=== PATIENT | male | born 1985 | race Two or more races ===

== ENCOUNTER 2024-03-01 02:38 | Emergency (ER) | payer BC, SELFPAY ==
[2024-03-01 02:43] VITALS: BP 118/84
--- NOTE | 2024-03-01 03:48 | ED.GENMED ---
History of Present Illness
<PINKY Reveles - Last Filed: 03/01/24 06:14>
General
Chief Complaint: Anal/Rectal Problem
Source: patient
Time Seen by Provider: 03/01/24 03:48
Nursing documentation reviewed up to this point in time: agreed with except (Pain has been present for 2 days, but acutely worsened over the last 24 hours.)
History of Present Illness
History of Present Illness:
A pleasant 38-year-old male with a past medical history of GERD, IBS, anxiety, presents to the emergency room for increasing anorectal pain x 2 days and possible 'thrombosed hemorrhoid '. Patient states that pain initially began 2 days ago but
confirms that pain has steadily increased throughout the day prompting him to come to the emergency department. Patient confirms he has had a posterior midline sentinal tag for the last 2 years that occasionally becomes swollen and inflamed. He
states that the most recent episode was 'a few months ago '. He has no associated constipation, diarrhea, abdominal pain, chest pain, shortness of breath, vomiting, Rectal bleeding.
Past History
<PINKY Reveles - Last Filed: 03/01/24 06:14>
Past History
ED Past Medical History: GERD, Psychiatric (takes Lexapro) and Other (IBS)
ED Past Surgical History: Cholecystectomy and Other (hernia)
Social History
Tobacco: Former smoker
Alcohol: Occasional
Personal:
Living: with roommate
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
Review of Systems
<PINKY Reveles - Last Filed: 03/01/24 06:14>
Review of Systems
All Other Systems: ROS reviewed and negative except as documented in HPI and ROS
Phy Exam
<PINKY Reveles - Last Filed: 03/01/24 06:14>
General Physical Exam
General Presentation: well appearing
General Skin: warm and dry
General Habitus: obese
General Mental: alert
General Hydration: appears well hydrated
Eye Exam
Eye Exam: PERRL
Cardiovascular Exam
Cardiovascular Exam: regular rate/rhythm, no edema, no gallop, no murmur and normal peripheral pulses
Pulmonary Exam
Pulmonary Exam: lungs clear, no respiratory distress, no rales, no crackles, no rhonchi, no wheezing and no cough
Gastrointestinal Exam
Gastrointestinal Exam: normal bowel sounds, non tender, soft and non distended
Rectal Exam: other (Large 3 cm posterior midline sentinel tag noted. Extremely tender to palpation. Small area of erythema noted on the right aspect of sentinel tag. No external source of bleeding identified.)
Neurological Exam
Neurological Exam: alert and oriented x3
Musculoskeletal Exam
Musculoskeletal Exam: full ROM
Psychiatric Exam
Psychiatric Exam: normal mood/affect
Course
<PINKY Reveles - Last Filed: 03/01/24 06:14>
Orders/Labs/Results
Orders:
Orders
03/01/24 05:05
Anusol Hc Suppository [Anusol Hc] 25 mg RECTAL NOW STA
Vital Signs
Initial and Last Documented VS:
Initial Vital Signs
Temp Pulse Resp BP Pulse Ox
98.0 F 61 16 118/84 98
03/01/24 02:43 03/01/24 02:43 03/01/24 02:43 03/01/24 02:43 03/01/24 02:43
Last Documented Vital Signs
Temp Pulse Resp BP Pulse Ox
98.0 F 61 16 118/84 98
03/01/24 02:43 03/01/24 02:43 03/01/24 02:43 03/01/24 02:43 03/01/24 02:43
<Jeffrey Velasquez DO - Last Filed: 03/01/24 04:45>
Orders/Labs/Results
Orders:
Orders
03/01/24 05:05
Anusol Hc Suppository [Anusol Hc] 25 mg RECTAL NOW STA
Vital Signs
Initial and Last Documented VS:
Initial Vital Signs
Temp Pulse Resp BP Pulse Ox
98.0 F 61 16 118/84 98
03/01/24 02:43 03/01/24 02:43 03/01/24 02:43 03/01/24 02:43 03/01/24 02:43
Last Documented Vital Signs
Temp Pulse Resp BP Pulse Ox
98.0 F 61 16 118/84 98
03/01/24 02:43 03/01/24 02:43 03/01/24 02:43 03/01/24 02:43 03/01/24 02:43
<PINKY Reveles - Last Filed: 03/01/24 06:14>
MDM/Problems Addressed
Differential Diagnosis Includes:
Thrombosed external hemorrhoid, rectal condyloma acuminata, internal hemorrhoid, Anal fissure.
<PINKY Reveles - Last Filed: 03/01/24 06:14>
*Critical Care Note
Total Time (30-74mins, 75-104mins- exclusive of procedures): Not Applicable
ED Attending Note
<PINKY Reveles - Last Filed: 03/01/24 06:14>
-
Portions of this chart may have been created with voice recognition software.� Occasional wrong word or��sound alike� substitutions may have occurred due to the inherent limitations of voice recognition software.
<Jeffrey Velasquez DO - Last Filed: 03/01/24 04:45>
ED Attending Note
Patient seen and examined by attending physician: Yes
I performed the substantive portion of visit, reviewed & personally made and approve the management plan that is documented in note by myself or BARRIE.: Yes
ED Attending Note:
Pleasant 38-year-old male presents with rectal pain. Patient states that the pain is been present for 2 days. He thought he had a thrombosed hemorrhoid. Patient came into the emergency department accustom pain has been worsening throughout the
day. Denies fever, chills, nausea or vomiting. Patient states that he has had a posterior midline sentinel tag that has been present for the last 2 years. It occasionally becomes inflamed with the last episode of inflammation began 2 months
prior. Patient denies chest pain or shortness of breath. Patient was seen in conjunction with the PA student. I have reviewed and agree with the history and treatment plan presented. On my independent physical exam, patient is awake, alert, and
oriented x3 minimal acute distress. No respiratory distress. Skin is warm and dry. Patient mentating appropriately. Focused physical exam rectal exam performed in the presence of nursing shows an inflamed sentinel tag. There is no obvious
evidence of a thrombosed hemorrhoid. Plan is to try Anusol suppository follow-up with colorectal surgery.
Discharge Plan
Departure
Patient Disposition: Home (Routine Discharge)
Date of Disposition: 03/01/24
Time of Disposition: 04:43
Patient with high blood pressure during this ER visit?: Yes
Condition: Good
Discharge Problem:
External hemorrhoid
Instructions: Hemorrhoids (DC), How to Do a Sitz Bath, BLOOD PRESSURE
Prescriptions:
New
hydrocortisone acetate [Anusol-HC] 25 mg suppository
25 mg AL BID Qty: 24 0RF
No Action
cetirizine [Zyrtec] 10 mg Tablet
10 mg PO DAILY
omeprazole 40 mg Capsule,Delayed Release(Dr/Ec)
40 mg PO DAILY
escitalopram oxalate [Lexapro] 20 mg Tablet
20 mg PO DAILY
Referrals:
Keivn Naranjo DO [Family Provider] -
Activity Restrictions/Additional Instructions:
It was a pleasure meeting you and taking part in your care. We hope for your continued healing and wellness.
Please read discharge instructions in their entirety. However, they are for general education and may not describe your exact diagnosis at discharge. Information on your ER visit and medical conditions were discussed with you along with appropriate
follow up information...
If indicated, please take your medications as instructed and indicated on discharge paperwork.
Please schedule a follow up appointment as directed. Call to schedule an appointment
Please return to the emergency department with ANY change in, persisting, or worsening of symptoms. If any of your symptoms do not improve, or persist, or become more severe within 6-12 hours, please return to the emergency department for further
care.
Please return to the emergency department if you develop a headache, neck pain/stiffness, fever greater than 100.4F, chest pain, shortness of breath, persistent nausea, vomiting, slurred speech, difficulty walking, numbness/tingling, weakness, signs
of infection or any other symptoms that are worrisome to you.
If you have any questions or concerns please do not hesitate to call the Hospital at or E-mail me directly at [email or web address]
Interventions
Interventions:
*Risk Screen - Suicide Last Done: 03/01/24 02:43
*Neglect/Abuse Screening Last Done: 03/01/24 02:43
*ED COVID-19 Vaccine History Last Done: 03/01/24 02:43
*Nursing Disposition Last Done: 03/01/24 05:17
Discharge Date and Time
Discharge Date/Time: 03/01/24 05:17
Print Language: HUNGARIAN
[2024-03-01] MEDS: ANUSOL HC 25 MG RECTAL (05:12)
== END 2024-03-01 05:17 | disposition home or self-care (01) ==
LOC: EMR 02:38
PROVIDERS: EMERGENCY PHYSICIAN Student in an Organized Health Care Education/Training Program; FAMILY PHYSICIAN Family Medicine
DX: K64.4 Residual hemorrhoidal skin tags (principal); K21.9 Gastro-esophageal reflux disease without esophagitis; Z90.49 Acquired absence of other specified parts of digestive tract; Z87.891 Personal history of nicotine dependence
CPT/HCPCS: 99283

== ENCOUNTER → 2025-02-10 18:40 | Outpatient (REF) | payer BC, SELFPAY | LOC: RAD 18:40 | PROVIDERS: ATTENDING PHYSICIAN Physician Assistant Surgical; FAMILY PHYSICIAN Family Medicine | DX: T15.90XA Foreign body on external eye, part unspecified, unspecified eye, initial encounter (principal) | CPT/HCPCS: 70030 ==